=== PATIENT | male | born 1965 | race Hispanic/Latino ===

== ENCOUNTER 2024-09-02 18:47 | Emergency (ER) | payer OTHER ==
[~2024-09-02] VITALS: Ht 180.3 cm; Wt 109.8 kg
--- NOTE | 2024-09-02 20:34 | HMCIMG ---
FOOT COMP 3+VWS RT REASON: Laceration R/O Foreign body TECHNIQUE: 3 views were obtained. FINDINGS: There are no acute appearing fractures. There is an old fracture distal fifth metatarsal. There is extensive periosteal reaction distal second and third metatarsals consistent with old fractures as well. There are severe destructive and degenerative changes in the midfoot consistent with neuropathic joint. There is no evidence of foreign body or gas forming infection. IMPRESSION: 1. No evidence of foreign body or gas forming infection. 2. 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
[2024-09-02] MEDS: LIDOCAINE 1%-EPI 1:100,000 20 ML VIAL IJ ONE (21:30)
[2024-09-02 21:32] VITALS: BP 160/80; PULSE 60; RESP 16; TEMP 98.3; O2SAT 98
[2024-09-02] MEDS ORDERED: AMOX1TAB16 PO (21:32)
[2024-09-02] MEDS ORDERED: CIPR-278 PO (21:32)
--- NOTE | 2024-09-02 21:32 | ERN ---
General Chief Complaint: Laceration/Avulsion Stated Complaint: CUT ON TOE Time Seen by MD: 18:50 Time Seen by Midlevel: 18:50 Source: patient History of Present Illness Initial Comments 58-year-old male who presents to the emergency department due to a laceration on his left foot toe. Patient reports he has been wearing socks and shoes all day the only time he was barefoot was when entering the shower. Denies any obvious objects that caused the laceration. Denies any other injuries or trauma to the foot. PMHx DM, neuropathy, HTN Allergies: Coded Allergies: No Known Allergies (Unverified Allergy, Unknown, 09/02/24) Home Meds Active Scripts Ciprofloxacin HCl (Cipro) 500 Mg Tablet, 1 TAB PO BID for 7 Days, #14 TAB 0 Refills Prov:ZURDO ANDRDAE 09/02/24 Amoxicillin/Potassium Clav (Amox Tr-K Clv 875-125 mg Tab) 875 Mg-125 Mg Tablet, 1 EACH PO BID for 7 Days, #14 TAB 0 Refills Prov:ZURDO ANDRADE 09/02/24 Past Medical History Past Medical History: Diabetes-Type II, Hypertension Past Surgical History: Other Surgical History Other: RT FOOT AMPUTATIO ROS Dictation Constitutional: Negative for fever,chills, and weight loss Eyes: Negative for injury, pain,redness, and discharge ENT: Negative for injury,pain or swelling Cardiovascular: Negative for chest pain, palpitations, and edema Respiratory: Negative for shortness of breath, cough, and wheezing, Abdomen/GI: Negative for abdominal pain, nausea, vomiting, diarrhea, and constipation Back: Negative for injury and pain : Negative for painful urination, bleeding or discharge MS/Extremity: Negative for injury and deformity Skin: Positive for laceration on the toe Negative for rash, and discoloration Neuro: Negative for headache, weakness, numbness, tingling, and seizure Psych: Negative for suicide ideation, homicidal ideation, and hallucinations Physical Exam Physical Exam Dictation General: awake, alert, no acute distress Head/Face: Normocephalic, atraumatic Eyes: normal conjunctiva Neck: Normal range of motion, supple Cardiovascular: RRR, normal S1/S2, Skin: Warm, dry, normal turgor, no rash, 2 cm laceration noted to the plantar flexor aspect of the 2nd toe left foot MS/Extremity: Pulses equal, no cyanosis, neurovascular intact, FROM Neuro: COAx4, GCS 15, no neurological deficits Psych: Normal behavior, mood, and affect normal Results EKG/XRAY/US/CT/MRI X-RAY Comment REASON: Laceration R/O Foreign body ORDERING PHYSICIAN: ZURDO ANDRADE PROCEDURE: FT 3VW RT - FOOT COMP 3+VWS RT FOOT COMP 3+VWS RT REASON: Laceration R/O Foreign body TECHNIQUE: 3 views were obtained. FINDINGS: There are no acute appearing fractures. There is an old fracture distal fifth metatarsal. There is extensive periosteal reaction distal second and third metatarsals consistent with old fractures as well. There are severe destructive and degenerative changes in the midfoot consistent with neuropathic joint. There is no evidence of foreign body or gas forming infection. IMPRESSION: 1. No evidence of foreign body or gas forming infection. 2. 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 DICTATED BY: SHIKHA CAZARES MD DATE: 09/02/242030 MDM MDM: Differential diagnosis: Laceration, foreign object retained, tendon involvement Rationale: 58-year-old male who presents to the emergency department due to a laceration on his left foot toe. Patient reports he has been wearing socks and shoes all day the only time he was barefoot was when entering the shower. Denies any obvious objects that caused the laceration. Denies any other injuries or trauma to the foot. PMHx DM, neuropathy, HTN Per physical examination a 2 cm laceration noted to the plantar aspect of the left foot flexor area 2nd toe, neurovascularly intact. X-rays obtained with no indication of foreign object retained, neuropathic changes noted to the midfoot. Laceration was cleansed and repaired performed in the ED without complications. Patient was prescribed antibiotics for outpatient treatment. Strict follow up with campaign director was recommended. Advised to follow up with PCP. Return to the emergency department if any worsening symptoms. Patient verbalized understanding. Patient stable for discharge. There are no social concerns with this patient. I independently interpreted the test that were performed, results were reviewed by me and considered findings on radiology if ordered. Medical management and examination interpretation discussions were had by me with other qualified healthcare professionals as indicated for the patient's care. ED Course Orders Procedure Category Date Status Time Foot Comp 3+Vws Rt RAD 09/02/24 Resulted 19:41 Lidocaine 1%-Epi PHA 09/02/24 Complete 1:100,000 (Lidocaine 20:00 Current Medications Medications (Trade) Dose Ordered Sig/Anthony Route PRN Reason Start Time Stop Time Status Last Admin Dose Admin Lidocaine/ Epinephrine (Lidocaine 1%-Epi 1:100,000) 10 ml ONCE ONCE IJ 09/02/24 20:00 09/02/24 20:01 DC 09/02/24 21:30 Vital Signs Date Time Temp Pulse Resp B/P (MAP) Pulse Ox O2 Delivery O2 Flow Rate FiO2 09/02/24 21:32 98.2 60 16 160/80 98 Room Air* 0 21 09/02/24 18:52 98.4 82 16 163/81 98 Room Air 0 Procedure Dictation Laceration repair Location: Left foot, 2nd toe plantar flexor aspect Lidocaine 1% 7 mL Sutured with 3-0 Prolene, three stitches Patient tolerated well No complications Performed by self Duration: 20 minutes DX & DISP Disposition: Discharge Departure Impression: Primary Impression: Toe laceration Condition: Stable Scripts Ciprofloxacin HCl (Cipro) 500 Mg Tablet 1 TAB PO BID for 7 Days, #14 TAB 0 Refills Prov: ZURDO ANDRADE 09/02/24 Amoxicillin/Potassium Clav (Amox Tr-K Clv 875-125 mg Tab) 875 Mg-125 Mg Tablet 1 EACH PO BID for 7 Days, #14 TAB 0 Refills Prov: ZURDO ANDRADE 09/02/24 Additional Instructions: Discharge home. Rest. Follow up with primary care DrFiorella in 24 hours. Return to the ER for any acute changes or worsening symptoms. If any medications were prescribed take as directed. Okay to continue home medications unless otherwise discussed during your visit in the emergency room today. Patient was also advised to follow-up with primary care physician in 1 to 2 days for continued monitoring. Referrals: SELF,REFERRAL (PCP) I participated in the following activities of this patient's care: For this patient encounter, I reviewed the PA or SOFTWARE SYSTEMS ENGINEER documentation, treatment plan, and medical decision making. I did not have [id number] time with this patient. I will sign as the reviewing DrFiorella And agree with the treatment plan and disposition. ZURDO ANDRADE Sep 02, 2024 21:32
== END 2024-09-02 21:44 | disposition home or self-care (01) ==
LOC: EDH 18:47
DX: S91.115A Laceration without foreign body of left lesser toe(s) without damage to nail, initial encounter (principal); E11.9 Type 2 diabetes mellitus without complications; I10 Essential (primary) hypertension; Z79.899 Other long term (current) drug therapy; Z98.890 Other specified postprocedural states; X58.XXXA Exposure to other specified factors, initial encounter; Y93.89 Activity, other specified; Y92.89 Other specified places as the place of occurrence of the external cause; Y99.8 Other external cause status
CPT/HCPCS: 99283; 73630; 12001; J3490 ×2